=== PATIENT | female | born 1995 | race African-American/Black ===

== ENCOUNTER 2018-06-03 14:12 | Emergency (ER) | payer SELFPAY ==
[~2018-06-03] VITALS: Ht 170.2 cm; Wt 62.0 kg
[2018-06-03] MEDS ORDERED: SODIUM CHLORIDE 0.9% 1,000 ML IV ONE (14:29)
[2018-06-03 16:02] LABS: BASOPHILS % 0.3 % (0.0-2.0); EOSINOPHILS % 0.4 % (0.0-5.0); HEMATOCRIT. 38.8 % (36.0-48.0); HEMOGLOBIN. 12.9 g/dL (12.0-16.0); LYMPHOCYTES % 11.5 % (20.0-50.0); MEAN CORPUSCULAR HEMOGLOBIN 28.6 pg (28.0-32.0); MEAN CORPUSCULAR VOLUME 86.4 fL (81.0-99.0); MEAN PLATELET VOLUME 7.6 fl (7.4-10.4); NEUTROPHILS % 82.8 % (40.0-76.0); PLATELET 256 x1000/uL (130-400); RED BLOOD CELL COUNT 4.49 mill/uL (4.2-5.4); RED CELL DISTRIBUTION WIDTH 14.6 % (11.6-14.6)
[2018-06-03 16:14] LABS: CHLORIDE 106 mEq/L (98-107)
[2018-06-03 16:30] VITALS: BP 90/56
== END 2018-06-03 16:57 | disposition home or self-care (01) ==
LOC: ER 14:12
DX: R55 Syncope and collapse (principal); T73.3XXA Exhaustion due to excessive exertion, initial encounter; Y93.73 Activity, racquet and hand sports
CPT/HCPCS: 36415; 80053; 83735; 85025; 93005; 96360; 96361; 99285; J7030